=== PATIENT | male | born 1960 | race Caucasian/White ===

== ENCOUNTER → 2021-04-01 | Outpatient (CLI) | payer OTHER | LOC: KOH-I 10:30 | DX: M25.551 Pain in right hip (principal); E11.8 Type 2 diabetes mellitus with unspecified complications; I10 Essential (primary) hypertension; Z87.39 Personal history of other diseases of the musculoskeletal system and connective tissue; R79.9 Abnormal finding of blood chemistry, unspecified; E83.41 Hypermagnesemia; M47.26 Other spondylosis with radiculopathy, lumbar region; M16.11 Unilateral primary osteoarthritis, right hip | CPT/HCPCS: 72100; 73502 ==

== ENCOUNTER → 2021-05-03 | Outpatient (CLI) | payer OTHER | LOC: KOH-I 04-27 10:30 | DX: F17.210 Nicotine dependence, cigarettes, uncomplicated (principal) | CPT/HCPCS: 71271 ==

== ENCOUNTER 2021-06-08 14:46 | Observation (INO) | payer OTHER ==
[~2021-06-08] VITALS: Ht 180.3 cm; Wt 77.1 kg
[2021-06-08 16:04] LABS: HEMOGLOBIN 16.9 gm/dl (14.0-17.5); RED BLOOD COUNT 5.39 M/UL (4.20-5.50); WHITE BLOOD COUNT 20.3 K/UL (4.5-11.0)
[2021-06-08 16:56] LABS: BUN/CREATININE RATIO 18 (0-10)
[2021-06-09] MEDS ORDERED: OXYCODONE HCL E10 MG PO (08:18)
[2021-06-09] MEDS ORDERED: OMEPRAZOLE40 MG PO (08:33)
[2021-06-09] MEDS ORDERED: TENORMIN 50 MG50 MG PO (08:33)
[2021-06-09] MEDS ORDERED: GLUCOPHAGE 500500 MG PO (08:34)
== END 2021-06-09 10:00 | disposition home or self-care (01) ==
LOC: ER1 14:46 → CDU 19:56 → MED SURG 4 22:27
PROVIDERS: Emergency Medicine; ADMIT Surgery
DX: S22.42XA Multiple fractures of ribs, left side, initial encounter for closed fracture (principal); S27.0XXA Traumatic pneumothorax, initial encounter; I10 Essential (primary) hypertension; E11.9 Type 2 diabetes mellitus without complications; J44.9 Chronic obstructive pulmonary disease, unspecified; F17.210 Nicotine dependence, cigarettes, uncomplicated; Z20.822 Contact with and (suspected) exposure to COVID-19; Z79.4 Long term (current) use of insulin; Z79.899 Other long term (current) drug therapy; W22.8XXA Striking against or struck by other objects, initial encounter; Y93.89 Activity, other specified; Y92.096 Garden or yard of other non-institutional residence as the place of occurrence of the external cause
CPT/HCPCS: 70450; 71045; 71260; 72125; 72128; 72131; 80053; 82550; 85025; 96374; 96375; 96376; 99285; G0378; J2270; J2405; Q9967; U0002